=== PATIENT | male | born 1960 | race African-American/Black ===

== ENCOUNTER 2020-09-17 13:17 | Inpatient (IN) | payer OTHER ==
[2020-09-17 13:46] VITALS: BMI 17.9
[2020-09-17] MEDS ORDERED: MAGNESIUM HYDROX 2400MG/30ML ORAL SUSPENSION 30 ML CUP PO PRN (14:49)
[2020-09-17] MEDS ORDERED: ONDANSETRON *ODT* 4 MG TABLET SL PRN (14:49)
[2020-09-17] MEDS ORDERED: ACETAMINOPHEN 325 MG TABLET (FP) PO PRN ×2 (14:49)
[2020-09-17] MEDS ORDERED: chlordiazePOXIDE HCL 25 MG CAPSULE PO PRN (14:49)
[2020-09-17] MEDS ORDERED: MENTHOL/PHENOL 1 EACH UD MM PRN (14:49)
[2020-09-17] MEDS ORDERED: MAGNESIUM CITRATE 300 ML BOTTLE PO PRN (14:49)
[2020-09-17] MEDS ORDERED: BISMUTH SUBSALICYLATE 524 MG/30 ML UD PO PRN (14:49)
[2020-09-17] MEDS ORDERED: IBUPROFEN 400 MG TABLET (FP) PO PRN (14:49)
[2020-09-17] MEDS ORDERED: MAG HYDROX/AL HYDROX/SIMETH 30 ML UNIT-DOSE CUP PO PRN (14:49)
[2020-09-17] MEDS ORDERED: METHOCARBAMOL 500 MG TABLET PO PRN (14:49)
[2020-09-17 17:13] LABS: POTASSIUM 4.1 mmol/L (3.5-5.1)
[2020-09-17 17:18] LABS: CALCIUM 9.2 mg/dL (8.5-10.1); HEMATOCRIT 36.8 % (35.4-49); HEMOGLOBIN 12.2 GM/dL (11.7-16.9); MCH 31.7 pg (25.7-33.7); MCHC 33.1 g/dl (32.0-35.9); MEAN CELL VOLUME 95.8 fl (80-96); MEAN PLT VOLUME 10.6 fl (7.5-11.1); PLATELET COUNT 170 K/MM3 (134-434); RBC 3.84 M/mm3 (4.00-5.60); RDW 14.5 % (11.9-15.9); WHITE BLOOD COUNT 5.4 K/mm3 (4.0-10.0)
[2020-09-17 17:19] LABS: ALBUMIN 3.7 g/dl (3.4-5.0); BLOOD UREA NITROGEN 12.1 mg/dL (7-18)
[2020-09-17 17:22] LABS: CREATININE 0.8 mg/dL (0.55-1.3)
[2020-09-17 17:24] LABS: TOT PROT 7.8 g/dl (6.4-8.2)
[2020-09-17] MEDS: chlordiazePOXIDE HCL 25 MG CAPSULE PO SCH ×2 (17:26→22:38)
[2020-09-17] MEDS ORDERED: hydrOXYzine PAMOATE 25 MG CAPSULE (FP) PO SCH (18:00)
[2020-09-17] MEDS: THIAMINE HCL 100 MG TABLET (FP) PO SCH (22:38)
[2020-09-17] MEDS: MELATONIN 5 MG TABLETS PO SCH (22:38)
[2020-09-18] MEDS: chlordiazePOXIDE HCL 25 MG CAPSULE PO SCH ×4 (06:02→22:15)
[2020-09-18] MEDS: PRENATAL VITAMINS W/ FOLIC ACID TABLET (FP) PO SCH (10:25)
[2020-09-18] MEDS ORDERED: FLU VACCINE (FLULAVAL) PF 60 MCG/0.5 ML SYRINGE 2020-2021 IM ONE (12:00)
[2020-09-18] MEDS: MELATONIN 5 MG TABLETS PO SCH (22:14)
[2020-09-18] MEDS: THIAMINE HCL 100 MG TABLET (FP) PO SCH (22:14)
[2020-09-19] MEDS: chlordiazePOXIDE HCL 25 MG CAPSULE PO SCH ×4 (05:51→23:03)
[2020-09-19] MEDS: PRENATAL VITAMINS W/ FOLIC ACID TABLET (FP) PO SCH (10:58)
[2020-09-19] MEDS: MELATONIN 5 MG TABLETS PO SCH (23:03)
[2020-09-19] MEDS: THIAMINE HCL 100 MG TABLET (FP) PO SCH (23:03)
[2020-09-20] MEDS ORDERED: chlordiazePOXIDE HCL 10 MG CAPSULE PO PRN
[2020-09-20] MEDS: chlordiazePOXIDE HCL 10 MG CAPSULE PO SCH ×4 (05:32→22:38)
[2020-09-20] MEDS: PRENATAL VITAMINS W/ FOLIC ACID TABLET (FP) PO SCH (10:36)
[2020-09-20] MEDS: MELATONIN 5 MG TABLETS PO SCH (22:38)
[2020-09-20] MEDS: THIAMINE HCL 100 MG TABLET (FP) PO SCH (22:38)
[2020-09-21] MEDS: chlordiazePOXIDE HCL 10 MG CAPSULE PO SCH ×2 (05:31→17:55)
[2020-09-21] MEDS: PRENATAL VITAMINS W/ FOLIC ACID TABLET (FP) PO SCH (10:59)
[2020-09-21] MEDS: MELATONIN 5 MG TABLETS PO SCH (22:25)
[2020-09-21] MEDS: THIAMINE HCL 100 MG TABLET (FP) PO SCH (22:25)
[2020-09-22] MEDS ORDERED: chlordiazePOXIDE HCL 10 MG CAPSULE PO ONE (05:00)
[2020-09-22 09:34] VITALS: BP 107/71; PULSE 92; TEMP 97.5
[2020-09-22] MEDS: PRENATAL VITAMINS W/ FOLIC ACID TABLET (FP) PO SCH (10:31)
== END 2020-09-22 13:45 | disposition other institution (70) | DRG 775 ==
LOC: YASAS 13:17 → Y3N 15:04
PROVIDERS: ADMIT Allergy & Immunology; ATTEND Allergy & Immunology
PROC: HZ2ZZZZ Detoxification Services for Substance Abuse Treatment (ICD-10-PCS; principal; 2020-09-17)
DX: F10.230 Alcohol dependence with withdrawal, uncomplicated (principal)
CPT/HCPCS: 36415; 80053; 82947; 84450; 85027; 86780; 93005; 93010; C9803; U0003

== ENCOUNTER 2020-09-22 14:00 | Inpatient (IN) | payer OTHER ==
[2020-09-22] MEDS ORDERED: LOPERAMIDE HCL 2 MG CAPSULE PO PRN (14:25)
[2020-09-22] MEDS ORDERED: MAG HYDROX/AL HYDROX/SIMETH 30 ML UNIT-DOSE CUP PO PRN (14:25)
[2020-09-22] MEDS ORDERED: guaiFENesin 200 MG/10 ML 10 ML UNIT-DOSE CUPS PO PRN (14:25)
[2020-09-22] MEDS ORDERED: NICOTINE POLACRILEX 2 MG GUM BUC PRN (14:25)
[2020-09-22] MEDS ORDERED: MAGNESIUM CITRATE 300 ML BOTTLE PO PRN (14:25)
[2020-09-22] MEDS ORDERED: hydrOXYzine PAMOATE 25 MG CAPSULE (FP) PO PRN (14:25)
[2020-09-22] MEDS ORDERED: ACETAMINOPHEN 325 MG TABLET (FP) PO PRN (14:25)
[2020-09-22] MEDS ORDERED: IBUPROFEN 400 MG TABLET (FP) PO PRN (14:25)
[2020-09-22] MEDS ORDERED: MENTHOL/PHENOL 1 EACH UD MM PRN (14:25)
[2020-09-22] MEDS ORDERED: P-EPHED 60MG/TRIPROLIDI 2.5MG TABLET PO PRN (14:25)
[2020-09-22] MEDS ORDERED: MAGNESIUM HYDROX 2400MG/30ML ORAL SUSPENSION 30 ML CUP PO PRN (14:25)
[2020-09-22] MEDS: MELATONIN 5 MG TABLETS PO SCH (21:38)
[2020-09-22] MEDS: THIAMINE HCL 100 MG TABLET (FP) PO SCH (21:38)
[2020-09-23] MEDS ORDERED: NICOTINE 7 MG/24 HOURS TOPICAL PATCH TD SCH (10:00)
[2020-09-23] MEDS: PRENATAL VITAMINS W/ FOLIC ACID TABLET (FP) PO SCH (10:06)
[2020-09-23] MEDS: THIAMINE HCL 100 MG TABLET (FP) PO SCH (21:03)
[2020-09-23] MEDS: MELATONIN 5 MG TABLETS PO SCH (21:03)
[2020-09-24] MEDS: PRENATAL VITAMINS W/ FOLIC ACID TABLET (FP) PO SCH (10:30)
[2020-09-24] MEDS: MELATONIN 5 MG TABLETS PO SCH (21:32)
[2020-09-24] MEDS: THIAMINE HCL 100 MG TABLET (FP) PO SCH (21:32)
[2020-09-25] MEDS: PRENATAL VITAMINS W/ FOLIC ACID TABLET (FP) PO SCH (09:40)
[2020-09-25] MEDS: THIAMINE HCL 100 MG TABLET (FP) PO SCH (21:44)
[2020-09-25] MEDS: MELATONIN 5 MG TABLETS PO SCH (21:44)
[2020-09-26] MEDS: PRENATAL VITAMINS W/ FOLIC ACID TABLET (FP) PO SCH (10:29)
[2020-09-26] MEDS ORDERED: PT OWN MED DRAWER 7, Y5N ONE (14:53)
[2020-09-26] MEDS: MELATONIN 5 MG TABLETS PO SCH (21:00)
[2020-09-26] MEDS: THIAMINE HCL 100 MG TABLET (FP) PO SCH (21:00)
[2020-09-27] MEDS: PRENATAL VITAMINS W/ FOLIC ACID TABLET (FP) PO SCH (09:55)
[2020-09-27] MEDS: MELATONIN 5 MG TABLETS PO SCH (21:14)
[2020-09-27] MEDS: THIAMINE HCL 100 MG TABLET (FP) PO SCH (21:14)
[2020-09-28] MEDS: PRENATAL VITAMINS W/ FOLIC ACID TABLET (FP) PO SCH (09:50)
[2020-09-28] MEDS: THIAMINE HCL 100 MG TABLET (FP) PO SCH (21:04)
[2020-09-28] MEDS: MELATONIN 5 MG TABLETS PO SCH (21:04)
[2020-09-29] MEDS: PRENATAL VITAMINS W/ FOLIC ACID TABLET (FP) PO SCH (10:04)
[2020-09-29] MEDS: THIAMINE HCL 100 MG TABLET (FP) PO SCH (21:10)
[2020-09-29] MEDS: MELATONIN 5 MG TABLETS PO SCH (21:10)
[2020-09-30] MEDS: PRENATAL VITAMINS W/ FOLIC ACID TABLET (FP) PO SCH (09:52)
[2020-09-30] MEDS: THIAMINE HCL 100 MG TABLET (FP) PO SCH (21:00)
[2020-09-30] MEDS: MELATONIN 5 MG TABLETS PO SCH (21:00)
[2020-10-01] MEDS: PRENATAL VITAMINS W/ FOLIC ACID TABLET (FP) PO SCH (09:39)
[2020-10-01] MEDS: THIAMINE HCL 100 MG TABLET (FP) PO SCH (21:14)
[2020-10-01] MEDS: MELATONIN 5 MG TABLETS PO SCH (21:14)
[2020-10-02] MEDS ORDERED: PT OWN MED DRAWER 7, Y5N ONE (08:56)
[2020-10-02] MEDS: PRENATAL VITAMINS W/ FOLIC ACID TABLET (FP) PO SCH (09:57)
[2020-10-02] MEDS: THIAMINE HCL 100 MG TABLET (FP) PO SCH (21:00)
[2020-10-02] MEDS: MELATONIN 5 MG TABLETS PO SCH (21:00)
[2020-10-03] MEDS: PRENATAL VITAMINS W/ FOLIC ACID TABLET (FP) PO SCH (10:01)
[2020-10-03] MEDS: THIAMINE HCL 100 MG TABLET (FP) PO SCH (21:22)
[2020-10-03] MEDS: MELATONIN 5 MG TABLETS PO SCH (21:22)
[2020-10-04] MEDS: PRENATAL VITAMINS W/ FOLIC ACID TABLET (FP) PO SCH (09:27)
[2020-10-04] MEDS: MELATONIN 5 MG TABLETS PO SCH (21:03)
[2020-10-04] MEDS: THIAMINE HCL 100 MG TABLET (FP) PO SCH (21:03)
[2020-10-05] MEDS: PRENATAL VITAMINS W/ FOLIC ACID TABLET (FP) PO SCH (09:55)
[2020-10-05] MEDS: MELATONIN 5 MG TABLETS PO SCH (21:49)
[2020-10-05] MEDS: THIAMINE HCL 100 MG TABLET (FP) PO SCH (21:49)
[2020-10-06] MEDS: PRENATAL VITAMINS W/ FOLIC ACID TABLET (FP) PO SCH (10:07)
[2020-10-06] MEDS: THIAMINE HCL 100 MG TABLET (FP) PO SCH (21:02)
[2020-10-06] MEDS: MELATONIN 5 MG TABLETS PO SCH (21:02)
[2020-10-07] MEDS: PRENATAL VITAMINS W/ FOLIC ACID TABLET (FP) PO SCH (09:52)
[2020-10-07] MEDS ORDERED: PT OWN MED DRAWER 7, Y5N ONE (10:09)
[2020-10-07] MEDS: MELATONIN 5 MG TABLETS PO SCH (21:23)
[2020-10-07] MEDS: THIAMINE HCL 100 MG TABLET (FP) PO SCH (21:23)
[2020-10-08] MEDS: PRENATAL VITAMINS W/ FOLIC ACID TABLET (FP) PO SCH (10:16)
[2020-10-08] MEDS: MELATONIN 5 MG TABLETS PO SCH (21:00)
[2020-10-08] MEDS: THIAMINE HCL 100 MG TABLET (FP) PO SCH (21:00)
[2020-10-09] MEDS: PRENATAL VITAMINS W/ FOLIC ACID TABLET (FP) PO SCH (10:15)
[2020-10-09] MEDS: THIAMINE HCL 100 MG TABLET (FP) PO SCH (21:34)
[2020-10-09] MEDS: MELATONIN 5 MG TABLETS PO SCH (21:34)
[2020-10-10] MEDS: PRENATAL VITAMINS W/ FOLIC ACID TABLET (FP) PO SCH (10:41)
[2020-10-10] MEDS: MELATONIN 5 MG TABLETS PO SCH (21:04)
[2020-10-10] MEDS: THIAMINE HCL 100 MG TABLET (FP) PO SCH (21:04)
[2020-10-11] MEDS: PRENATAL VITAMINS W/ FOLIC ACID TABLET (FP) PO SCH (10:16)
[2020-10-11] MEDS: MELATONIN 5 MG TABLETS PO SCH (21:36)
[2020-10-11] MEDS: THIAMINE HCL 100 MG TABLET (FP) PO SCH (21:36)
[2020-10-12] MEDS: PRENATAL VITAMINS W/ FOLIC ACID TABLET (FP) PO SCH (09:45)
[2020-10-12] MEDS: MELATONIN 5 MG TABLETS PO SCH (21:04)
[2020-10-12] MEDS: THIAMINE HCL 100 MG TABLET (FP) PO SCH (21:04)
[2020-10-13 07:35] VITALS: BP 119/64; PULSE 71; TEMP 97.5
== END 2020-10-13 09:40 | disposition home or self-care (01) | DRG 775 ==
LOC: YASAS 14:00 → Y3W 14:01
PROVIDERS: ADMIT Allergy & Immunology; ATTEND Allergy & Immunology
DX: F10.20 Alcohol dependence, uncomplicated (principal)
CPT/HCPCS: C9803; U0003